=== PATIENT | male | born 1955 | race Two or more races ===

== ENCOUNTER 2025-01-11 12:02 | Inpatient (IN) | payer OTHER ==
[~2025-01-11] VITALS: Ht 170.2 cm; Wt 77.3 kg
--- NOTE | 2025-01-11 12:38 | ECG ---
[facility] Test Date: 2025-01-11 Test Time: 12:37:20 Pat Name: GISELL BHATIA Department: Room: 0288T Gender: M Paper Slitter: KEI : 1955 Requested By: CAROL SUAREZ Order Number: [id number] Reading MD: Raj Chapa Measurements Intervals [place] Rate: 52 P: 44 NE: 183 QRS: 55 QRSD: 103 T: 43 QT: 427 QTc: 397 Interpretive Statements Sinus rhythm Low voltage, precordial leads Electronically Signed On 01-15-2025 15:39:33 PST by Raj Chapa Please click the below link to view image of tracing.
--- NOTE | 2025-01-11 12:51 | ED.PDOC ---
History of Present Illness HPI Comments 69 year old male with PMHx DM, HLD presents to the ED with a chief complaint of dizziness onset 3 days. Patient states he has been experiencing dizziness as well as RT sided weakness, RT sided headache for the past 3 days. Patient states RT side feels weak, looses his balance to the RT. He thought it could be do to high BG, did not check it. Denies blurred vision, numbness/tingling, chest pain, shortness of breath, fever, chills, nausea, vomiting, diarrhea. No other symptoms or modifying factors present at this time. Chief Complaint: Dizziness Time Seen by MD: 12:40 Reviewed Notes: Medications, Allergies Allergies: Coded Allergies: NO KNOWN ALLERGIES (Unverified , 01/11/25) Information Source: Patient Mode of Arrival: Ambulatory Severity: Moderate Timing: Days Duration: Since onset Prehospital treatment: None Past Medical History PAST MEDICAL HISTORY: DM, High Lipids Surgical History: Denies all surgeries Family History Family History: Reviewed,noncontributory to illness, No family hx of Cancer, No family hx of DM, No family hx of Heart glenn, No family hx of HTN, No family hx ofKidney glenn, No family hx of Liver glenn, No family hx of Lung glenn, No family hx of Stroke Social History Smoker: Non-Smoker Alcohol: Denies ETOH Use Drugs: Denies Drug Use Lives In: Home Constitutional: denies: chills, diaphoresis, fatigue, fever, malaise, sweats, weakness, others EENTM: denies: blurred vision, double vision, ear bleeding, ear discharge, ear drainage, ear pain, ear ringing, eye pain, eye redness, hearing loss, mouth pain, mouth swelling, nasal discharge, nose bleeding, nose congestion, nose pain, photophobia, tearing, throat pain, throat swelling, voice changes, others Respiratory: denies: cough, hemoptysis, orthopnea, SOB at rest, shortness of breath, SOB with excertion, stridor, wheezing, others Cardiovascular: denies: chest pain, dizzy spells, diaphoresis, Dyspnea on exertion, edema, irregular heart beat, left arm pain, lightheadedness, palpitations, PND, syncope, others Gastrointestinal: denies: abdomen distended, abdominal pain, blood streaked bowels, constipated, diarrhea, dysphagia, difficulty swallowing, hematemesis, melena, nausea, poor appetite, poor fluid intake, rectal bleeding, rectal pain, vomiting, others Genitourinary: denies: burning, dysuria, flank pain, frequency, hematuria, incontinence, penile discharge, penile sore, pain, testicle pain, testicle swelling, urgency, others Neurological: reports: dizziness, headache, right sided weakness; denies: fainting, left sided numbness, left sided weakness, numbness, paresthesia, pre- existing deficit, right sided numbness, seizure, speech problems, tingling, tremors, weakness, others Musculoskeletal: denies: back pain, gout, joint pain, joint swelling, muscle pain, muscle stiffness, neck pain, others Integumetry: denies: bruises, change in color, change in hair/nails, dryness, laceration, lesions, lumps, rash, wounds, others Allergic/Immunocompromised: denies: Difficulty Healing, Frequent Infections, Hives, Itching, others Hematologic/Lymphatic: denies: anemia, blood clots, easy bleeding, easy bruising, swollen glands, others Endocrine: denies: excessive hunger, excessive sweating, excessive thirst, excessive urination, flushing, intolerance to cold, intolerance to heat, unexplained weight gain, unexplained weight loss, others Psychiatric: denies: anxiety, bipolar disorder, depression, hopeless, panic disorder, schizophrenia, sleepless, suicidal, others All Other Systems: Reviewed and Negative Physical Exam General Appearance: Normal HEENT: Normal ENT Inspection, Pharynx Normal, TMs Normal Neck: Full Range of Motion, Non-Tender, Normal, Normal Inspection Respiratory: Chest Non-Tender, Lungs Clear, No Accessory Muscle Use, No Respiratory Distress, Normal Breath Sounds Cardiovascular: No Edema, No JVD, No Murmur, No Gallop, Normal Peripheral Pulses, Regular Rate/Rhythm Breast Exam: Deferred Gastrointestinal: No Organomegaly, Non Tender, No Pulsatile Mass, Normal Bowel Sounds, Soft Genitalia: Deferred Pelvic: Deferred Rectal: Deferred Extremities: No calf tenderness, Normal capillary refill, Normal inspection, Normal range of motion, Non-tender, No pedal edema Musculoskeletal : Apperance: Normal Neurologic: Alert, 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 Was a procedure done?: No Differential Dx Considerations may include: ACS, CVA, viral syndrome X-Ray, Labs, Meds, VS Vital Signs Date Time Temp Pulse Resp B/P (MAP) Pulse Ox O2 Delivery O2 Flow Rate FiO2 01/11/25 12:37 52 01/11/25 12:03 97.4 57 16 128/77 95 97.4 Lab Test 01/11/25 14:20 01/11/25 12:53 Range/Units Troponin I High Sensitivity 4 4 </=54 ng/L White Blood Count 7.1 4.4-10.8 10^3/uL Red Blood Count 5.27 4.5-5.90 10^6/uL Hemoglobin 15.6 13.5-17.5 g/dL Hematocrit 46.2 41.0-53.0 % Mean Corpuscular Volume 87.6 80.0-100.0 fL Mean Corpuscular Hemoglobin 29.7 28.0-32.0 pg Mean Corpuscular Hemoglobin Concent 33.8 32.0-36.0 g/dL Red Cell Distribution Width 13.7 11.8-14.3 % Platelet Count 199 140-450 10^3/uL Mean Platelet Volume 8.0 6.9-10.8 fL Neutrophils (%) (Auto) 66.7 37.0-80.0 % Lymphocytes (%) (Auto) 25.1 10.0-50.0 % Monocytes (%) (Auto) 6.0 0.0-12.0 % Eosinophils (%) (Auto) 2.0 0.0-7.0 % Basophils (%) (Auto) 0.2 0.0-2.0 % Neutrophils # (Auto) 4.7 1.6-8.6 10 ^3/uL Lymphocytes # (Auto) 1.8 0.4-5.4 10 ^3/uL Monocytes # (Auto) 0.4 0-1.3 10 ^3/uL Eosinophils # (Auto) 0.1 0-0.8 10 ^3/uL Basophils # (Auto) 0 0-0.2 10 ^3/uL Nucleated Red Blood Cells 0.2 % Sodium Level 141 136-145 mmol/L Potassium Level 3.7 3.5-5.1 mmol/L Chloride Level 102 98-107 mmol/L Carbon Dioxide Level 27 20-31 mmol/L Anion Gap 12 5-15 Blood Urea Nitrogen 15 9-23 mg/dL Creatinine 0.82 0.700-1.30 mg/dL Glomerular Filtration Rate Calc 95 >90 mL/min BUN/Creatinine Ratio 18.3 10.0-20.0 Serum Glucose 124 H 74-106 mg/dL Calcium Level 10.2 8.7-10.4 mg/dL Time of 1ST Reevaluation: 13:10 Reevaluation 1ST: Unchanged Patient Education/Counseling: Diagnosis, Treatment, Need For Follow Up Family Education/Counseling: No Family Present SEPSIS Sepsis Screen Date sepsis recognized/suspect: Jan 11, 2025 Time Sepsis recognized/suspect: 1203 Recent Procedure: No On Antibiotic Therapy: No Respiratory Rate >20: No Heart Rate >90: No Temp<36 C (96.8 F) or >38.3 C: No SBP <90 or MAP <65 mmHG: No New Acute Mental Status Change: No Is the patient on CPAP, BIPAP,: No Physician Orders Urinalysis (01/11/25 12:42) Chest Portable (01/11/25 12:42) Head Without Contrast (01/11/25 12:42) Electrocardigram (01/11/25 12:42) Troponin-I Hs (01/11/25 15:42) Electrocardigram (01/11/25 13:42) Electrocardigram (01/11/25 15:42) Vital Signs Date Time Temp Pulse Resp B/P (MAP) Pulse Ox O2 Delivery O2 Flow Rate FiO2 01/11/25 12:37 52 01/11/25 12:03 97.4 57 16 128/77 95 97.4 Laboratory Tests Test 01/11/25 12:53 White Blood Count 7.1 10^3/uL (4.4-10.8) Departure 1 Departure Time of Disposition: 15:44 (Patient with paresthesias and concern for CVA. We will admit the patient for further workup and expert consultation) Impression: Primary Impression: Right-sided muscle weakness Disposition: 09 ADMITTED INPATIENT Admit to: Tele Condition: Guarded Critical Care Note Critical Care Time?: Yes Critical care comment: Concern for CVA Authorized and Performed by: Carol Orlando MD Total critical care time: Approximately 39 minutes Due to a high probability of clinically significant, life threatening deterioration, the patient required my highest level of preparedness to intervene emergently and I personally spent this critical care time directly and personally managing the patient. This critical care time included obtaining a history; examining the patient; pulse oximetry; ordering and review of studies; arranging urgent treatment with development of a management plan; evaluation of patient's response to treatment; frequent reassessment; and, discussions with other providers. This critical care time was performed to assess and manage the high probability of imminent, life-threatening deterioration that could result in multi-organ failure. It was exclusive of separately billable procedures and treating other patients and teaching time. Please see my other sections and the rest of the note for further information on patient assessment and treatment. Stability Stability form required: No Heart Score Heart Score: Heart Score Response (Comments) Value History N/A 0 EKG N/A 0 Age N/A 0 Risk Factors N/A 0 Troponin N/A 0 Total 0 I personally scribed for CAROL ORLANDO MD ([email or web address]) on 01/11/25 at 12:51. Electronically submitted by Svetlana Schmidt ([email or web address]). CAROL ORLANDO MD Jan 11, 2025 12:51
[2025-01-11 13:22] LABS: Hematocrit 46.2 % (41.0-53.0); Hemoglobin 15.6 g/dL (13.5-17.5); Mean Corpuscular Hemoglobin 29.7 pg (28.0-32.0); Mean Corpuscular Volume 87.6 fL (80.0-100.0); Nucleated Red Blood Cells % 0.2 %
--- NOTE | 2025-01-11 13:23 | DVH ---
CHEST RADIOGRAPH Indication: left arm weakness Technique: Single frontal view of the chest was obtained Comparison: None FINDINGS: Lines and Tubes: None Lungs: Prominent bibasilar bronchovascular markings. Findings may be chronic there are no prior studies for comparison Pleura: No effusion. No pneumothorax. Cardiomediastinal contours: Unremarkable Bones: No acute osseous abnormality. IMPRESSION: 1. Prominent bronchovascular markings in the lung bases. There are no prior chest x-rays to help distinguish acute versus chronic pulmonary changes.
--- NOTE | 2025-01-11 13:27 | DVH ---
CT brain without contrast CLINICAL INDICATION: left arm weakness FINDINGS: The study was performed in a multidetector scanner. This study performed taking axial images from the skull base up to the vertex. Both brain and bone windows are photographed. Dose lowering techniques have been used including automated exposure control and adjustment of mA and/or KV according to patient size. Normal and symmetrical shape and density of brain parenchyma above and below the tentorium is seen. Mild bifrontal cortical sulcal prominence. There is no mass, midline shift or hydrocephalus. No intra/extra-axial collections demonstrated. There is no intracranial hemorrhage. The calvarium is intact. IMPRESSION: 1. No acute intracranial pathology Computed Tomographic Radiation Dosimetry Report: Total CTDI vol = 53 mGy Total DLP = 966 mGy-cm All CT scans at this medical facility are performed using dose modulation techniques as appropriate to a performed exam including the following: Automated exposure control was utilized; adjustment of the MA and/or KvP according to patient size; and use of iterative reconstruction technique.
[2025-01-11 13:31] LABS: Chloride 102 mmol/L (98-107); Potassium 3.7 mmol/L (3.5-5.1); Sodium 141 mmol/L (136-145)
[2025-01-11 13:32] LABS: Anion Gap 12 (5-15); Calcium 10.2 mg/dL (8.7-10.4); Carbon Dioxide 27 mmol/L (20-31)
[2025-01-11 13:37] LABS: BUN/Creatinine Ratio 18.3 (10.0-20.0); Blood Urea Nitrogen 15 mg/dL (9-23)
[2025-01-11 13:38] LABS: Glucose 124 mg/dL (74-106)
[2025-01-11] MEDS ORDERED: DOCUSATE SOD 100 MG CAP PO PRN (16:15)
[2025-01-11] MEDS ORDERED: NITROGLYCERIN 0.4 MG SL TAB SL PRN (16:15)
[2025-01-11] MEDS ORDERED: ONDANSETRON HCL 4 MG/2 ML VIAL IV PRN (16:15)
[2025-01-11] MEDS ORDERED: DEXTROSE (50%) 50ML SYRG IV PRN (16:30)
--- NOTE | 2025-01-11 16:36 | DVHHPRES ---
History of Present Illness Resident Creating Document: EVERARDO MARCUS RESIDENT History of Present Illness Mr. Ross, a comparatively healthy 69-year-old male with a history of diabetes and hyperlipidemia presents to the ED with a 3-day history of dizziness, right-sided weakness, and right-sided headache. He reports feeling of f balance and attributes symptoms to possibly elevated blood glucose, though he has not checked his levels. He denies chest pain, shortness of breath, visual changes, numbness, nausea, vomiting, diarrhea, fever, or chills. Symptoms began spontaneously and have persisted without improvement. He arrived ambulatory and has not received any prehospital treatment. PMHx: DM type II, High Lipids Surgical History: Denies all surgeries Family History: Reviewed, noncontributory to illness Social History: Non-Smoker, Denies ETOH Use, Denies Drug Use lives in home. Review of Systems Constitutional: Yes: Weakness; No: Fever, Chills, Sweats, Malaise, Other Eyes: No: Pain, Vision change, Conjunctivae inflammation, Eyelid inflammation, Other, Redness ENT: No: Ear pain, Ear discharge, Nose pain, Nose discharge, Nose congestion, Mouth pain, Mouth swelling, Throat pain, Throat swelling, Other Respiratory: No: Cough, Dry, Shortness of breath, SOB with excertion, Wheezing, Hemoptysis, Pleuritic Pain, Sputum, Wheezing, Other Cardiovascular: No: Chest Pain, Palpitations, Orthopnea, Paroxysmal Noc. Dyspnea, Edema, Lt Headedness, Other Gastrointestinal: No: Nausea, Vomiting, Abdominal Pain, Diarrhea, Constipation, Melena, Hematochezia, Other Genitourinary: No Dysuria, No Frequency, No Incontinence, No Hematuria, No Retention, No Other Musculoskeletal: No: other, neck pain, shoulder pain, arm pain, back pain, hand pain, leg pain, foot pain Skin: No: Rash, Lesions, Jaundice, Bruising, Other Neurological: Weakness, Incoordination, Other (headache and weakness. ); No: Numbness, Change in speech, Confusion, Seizures Allergies: Coded Allergies: NO KNOWN ALLERGIES (Unverified , 01/11/25) Exam Vital Signs Vital Signs Date Time Temp Pulse Resp B/P (MAP) Pulse Ox O2 Delivery O2 Flow Rate FiO2 01/11/25 12:37 52 01/11/25 12:03 97.4 16 128/77 95 97.4 General Appearance: Alert, Oriented X3, Cooperative HEENT: Atraumatic, PERRLA, EOMI, Mucous membr. moist/pink Respiratory: Clear to auscultation, Normal air movement Cardiovascular: Regular rate, Normal S1, Normal S2, No murmurs, Gallops, Rubs Abdominal: Normal bowel sounds, Soft, No tenderness, No hepatospenomegaly, No masses Extremities: No clubbing, No cyanosis, Normal pulses, No tenderness/swelling Skin: No rashes, No breakdown, No significant lesion Neuro: Normal gait, Normal speech, Normal tone, Sensation intact, Cranial nerves 3-12 NL, Reflexes 2+, Other (Gross strength left lower leg vs right lower leg and left upper limb vs right lower limb indifferentiable) Psych/Mental Status: Mental status NL, Mood NL Labs/Xrays Labs Test 01/11/25 14:20 01/11/25 12:53 Range/Units Troponin I High Sensitivity 4 </=54 ng/L White Blood Count 7.1 4.4-10.8 10^3/uL Red Blood Count 5.27 4.5-5.90 10^6/uL Hemoglobin 15.6 13.5-17.5 g/dL Hematocrit 46.2 41.0-53.0 % Mean Corpuscular Volume 87.6 80.0-100.0 fL Mean Corpuscular Hemoglobin 29.7 28.0-32.0 pg Mean Corpuscular Hemoglobin Concent 33.8 32.0-36.0 g/dL Red Cell Distribution Width 13.7 11.8-14.3 % Platelet Count 199 140-450 10^3/uL Mean Platelet Volume 8.0 6.9-10.8 fL Neutrophils (%) (Auto) 66.7 37.0-80.0 % Lymphocytes (%) (Auto) 25.1 10.0-50.0 % Monocytes (%) (Auto) 6.0 0.0-12.0 % Eosinophils (%) (Auto) 2.0 0.0-7.0 % Basophils (%) (Auto) 0.2 0.0-2.0 % Neutrophils # (Auto) 4.7 1.6-8.6 10 ^3/uL Lymphocytes # (Auto) 1.8 0.4-5.4 10 ^3/uL Monocytes # (Auto) 0.4 0-1.3 10 ^3/uL Eosinophils # (Auto) 0.1 0-0.8 10 ^3/uL Basophils # (Auto) 0 0-0.2 10 ^3/uL Nucleated Red Blood Cells 0.2 % Sodium Level 141 136-145 mmol/L Potassium Level 3.7 3.5-5.1 mmol/L Chloride Level 102 98-107 mmol/L Carbon Dioxide Level 27 20-31 mmol/L Anion Gap 12 5-15 Blood Urea Nitrogen 15 9-23 mg/dL Creatinine 0.82 0.700-1.30 mg/dL Glomerular Filtration Rate Calc 95 >90 mL/min BUN/Creatinine Ratio 18.3 10.0-20.0 Serum Glucose 124 H 74-106 mg/dL Calcium Level 10.2 8.7-10.4 mg/dL SEPSIS Sepsis Screen Date sepsis recognized/suspect: Jan 11, 2025 Time Sepsis recognized/suspect: 1203 Recent Procedure: No On Antibiotic Therapy: No Respiratory Rate >20: No Heart Rate >90: No Temp<36 C (96.8 F) or >38.3 C: No SBP <90 or MAP <65 mmHG: No New Acute Mental Status Change: No Is the patient on CPAP, BIPAP,: No Physician Orders Urinalysis (01/11/25 12:42) Chest Portable (01/11/25 12:42) Head Without Contrast (01/11/25 12:42) Electrocardigram (01/11/25 12:42) Troponin-I Hs (01/11/25 15:42) Electrocardigram (01/11/25 13:42) Electrocardigram (01/11/25 15:42) Admit (01/11/25 16:06) Allergies (01/11/25 16:06) Code Status (01/11/25 16:06) Sodium Chloride 0.9% (01/11/25 16:15) Ondansetron Hcl (Zofran) (01/11/25 16:15) Docusate Sodium Capsule (Colace Capsule) (01/11/25 16:15) Fall Risk Precautions In Place QSHIFT (01/11/25 16:06) Complete Blood Count (01/12/25 04:00) Comprehensive Metabolic Panel (01/12/25 04:00) Pt Request For Service (01/11/25 16:06) Echo 2d Mode Cardiac Dop (01/11/25 16:06) Carotid Duplx W Color Dop (01/11/25 16:06) Condition: Critical (01/11/25 16:06) Bedrest With Bathroom Privileg (01/11/25 16:06) Sequential Compression Device (01/11/25 ) Nitroglycerin Sublingual (Ntrostat Subli (01/11/25 16:15) Morphine Sulfate Injection (01/11/25 16:15) Oxygen By Nasal Cannula (01/11/25 16:06) Stat Ekg For Chest Pain (01/11/25 16:06) Notify Of Changes From Base (01/11/25 16:06) Drying Oven Tender For 24 Hours (01/11/25 16:06) Emergency Dysrhythmia Protocol (01/11/25 16:06) Rhythm Strips Once Every Shift (01/11/25 16:06) Covid19 Antigen Linda (01/11/25 ) Rapid Influenza A&B (01/11/25 16:16) Hepatic Panel (01/11/25 16:16) Orthostatic Vital Signs (01/11/25 16:16) Drug Screen (01/11/25 16:17) Urinalysis (01/11/25 16:17) Thyroid Stimulating Hormone (01/11/25 16:17) Aspirin Tablet (01/11/25 16:30) Atorvastatin (Lipitor) (01/11/25 22:00) Cardiac Diet-2gna,Lofat,Lochol (01/11/25 Dinner) Glucose Blood (Accu-Chek Comfort Curve T (01/11/25 17:00) Insulin R (Human) (Insulin R) (01/11/25 17:00) Dextrose 50% Syringe (01/11/25 16:30) B-Type Natriuretic Peptide (01/11/25 16:20) Famotidine Tablet (Pepcid Tablet) (01/11/25 22:00) Vital Signs Date Time Temp Pulse Resp B/P (MAP) Pulse Ox O2 Delivery O2 Flow Rate FiO2 01/11/25 12:37 52 01/11/25 12:03 97.4 57 16 128/77 95 97.4 Laboratory Tests Test 01/11/25 12:53 White Blood Count 7.1 10^3/uL (4.4-10.8) Assessment/Plan Assessment/Plan # Stroke vs TIA: dizziness, with Rt sided weakens with headache: CT NC Head -ve, PT if persistent weakness neurology eval and MRI head. Will start on aspirin and atorvastatin for now. Neurology consult. # sinus bradycardia heart rate in 50s, symptomatic with dizziness/ presyncope episodes: Low voltage, precordial leads, Telemetry no mike chen, atropine as needed, ruled out beta chen toxicity, if heart rate goes further below we will need temporary pacing with IV dopamine, isolated left great, evaluation by Cardiology for possible sick sinus syndrome/ need of Permanent pacemaker # Recurrent Dizziness: orthostatic vitals, telemetry TSH, rule out B12, folate and PT eval for fall precautions. # Diabetes type II: on oral hypoglycemics: previously on faxiga , pioglitazone not on metformin 1000 bid, check for lactate. HBA1C target 7-8 # Dyslipidemia: on atorvastrin 20 mg daily. will continue at 40 mg daily PUD prophylaxis: famotidine DVT prophylaxis: SCD/brisk movement. Barriers to discharge: Medical diagnosis and management in progress. Patient lives with family. Independent for ADL prior to weakness. PT and SW consult as needed. PCP: MELVA Buitrago. Specialist Relevant To Admission: Neurology for TIA vs Stroke. Cardiology, if telemetry remarkable for rhythm disorders Case discussed with Dr. Dale. Code Status: Full Code. Discussion needed total 29 minutes bedside. Plan discussed with: Patient My Orders Orders - EVERARDO MARCUS RESIDENT Procedure Category Date Status Time Admit ADMIT 01/11/25 Transmitted 16:06 Allergies [facility] 01/11/25 In Process 16:06 Code Status CODE 01/11/25 Transmitted 16:06 Sodium Chloride 0.9% PHA 01/11/25 Logged 16:15 Ondansetron Hcl PHA 01/11/25 Logged (Zofran) 16:15 Docusate Sodium PHA 01/11/25 Logged Capsule (Colace 16:15 Fall Risk Precautions ASIA 01/11/[address] 16:06 Complete Blood Count LAB 01/12/25 Verified 04:00 Comprehensive LAB 01/12/25 Verified Metabolic Panel 04:00 Pt Request For Service PT 01/11/25 Logged 16:06 Echo 2d Mode Cardiac US 01/11/25 Logged DOP 16:06 Carotid Duplx W Color US 01/11/25 Logged DOP 16:06 Condition: Critical [facility] 01/11/25 In Process 16:06 Bedrest With Bathroom [facility] 01/11/25 In Process Privileg 16:06 Sequential [facility] 01/11/25 In Process Compression Device Nitroglycerin [facility] 01/11/25 Logged Sublingual (Ntrostat 16:15 Morphine Sulfate [facility] 01/11/25 Logged Injection 16:15 Oxygen By Nasal RT 01/11/25 Transmitted Cannula 16:06 Stat Ekg For Chest [facility] 01/11/25 In Process Pain 16:06 Notify Of Changes [facility] 01/11/25 In Process From Base 16:06 Drying Oven Tender For [facility] 01/11/25 In Process 24 Hours 16:06 Emergency Dysrhythmia [facility] 01/11/25 In Process Protocol 16:06 Rhythm Strips Once [facility] 01/11/25 In Process Every Shift 16:06 Covid19 Antigen Linda LAB 01/11/25 Logged Rapid Influenza A&B LAB 01/11/25 Logged 16:16 Hepatic Panel LAB 01/11/25 Logged 16:16 Orthostatic Vital ORDERS 01/11/25 Transmitted Signs 16:16 Drug Screen LAB 01/11/25 Logged 16:17 Urinalysis LAB 01/11/25 Logged 16:17 Thyroid Stimulating LAB 01/11/25 Logged Hormone 16:17 Aspirin Tablet [facility] 01/11/25 Logged 16:30 Atorvastatin (Lipitor) [facility] 01/11/25 Logged 22:00 Cardiac DIET 01/11/25 Transmitted Diet-2gna,Lofat,Lochol Dinner Glucose Blood PHA 01/11/25 Logged (Accu-Chek Comfort 17:00 Insulin R (Human) [facility] 01/11/25 Logged (Insulin R) 17:00 Dextrose 50% Syringe [facility] 01/11/25 Logged 16:30 B-Type Natriuretic LAB 01/11/25 In Process Peptide 16:20 Famotidine Tablet [facility] 01/11/25 Logged (Pepcid Tablet) 22:00 Date of Service: Jan 11, 2025 Billing Provider: BRITTANY DALE MD Common Visit Codes: 30452-VUXCOWO INP/OBS CARE (HIGH) Secondary Visit Codes: 32899-[id number] CARE PLAN 30 MINUTES EVERARDO MARCUS 10, 2025 16:36
[2025-01-11] MEDS: SODIUM CHLORIDE 0.9% 1,000 ML IV SCH (16:48)
[2025-01-11] MEDS ORDERED: MORPHINE SULFATE 4 MG/ML SYR/VIAL IV PRN (17:00)
[2025-01-11 17:33] LABS: Alanine Aminotransferase 13.0 U/L (7-40); Albumin 4.8 g/dL (3.2-4.8); Alkaline Phosphatase 109.0 U/L (46-116); Bilirubin, Direct 0.1 mg/dL (<0.3); Bilirubin, Total 0.6 mg/dL (0.2-1.0); Total Protein 7.5 g/dL (5.7-8.2)
[2025-01-11] MEDS: ACCU-CHEK COMFORT CURVE STRIP VI SCH (17:33)
[2025-01-11] MEDS: InsuLIN REG 1unit/0.01ml Soln (100units/ml) SC SCH (17:56)
--- NOTE | 2025-01-11 17:56 | DVH ---
Carotid Duplex Clinical History: r/o clinically significant carotid stenosis. Comparison: None Technique: Duplex Doppler evaluation of the extracranial carotid and vertebral arteries including color Doppler and spectral/pulsed waveform analysis was performed. Findings: RIGHT SIDE: The peak systolic velocities are 89 cm/s in the CCA, 74 cm/s in the ICA. The ICA/CCA ratio is 0.8. The external carotid artery is patent with peak systolic velocity of 98 cm/s proximally. The subclavian artery is patent with peak systolic velocity of n/a cm/s. There is appropriate antegrade flow in the right vertebral artery. LEFT SIDE: The peak systolic velocities are 81 cm/s in the CCA, 100 cm/s in the ICA. The ICA/CCA ratio is 1.2. The external carotid artery is patent with peak systolic velocity of 139 cm/s proximally. The subclavian artery is patent with peak systolic velocity of n/a cm/s. There is appropriate antegrade flow in the left vertebral artery. IMPRESSION: No hemodynamically significant stenosis noted in the right carotid system. No hemodynamically significant stenosis noted in the left carotid system. Reference: Radiology 2003; 229:340-346 Normal ICA PSV is <125 cm/sec and no plaque or intimal thickening is visible sonographically additional criteria include ICA/CCA PSV ratio <2.0 and ICA EDV <40 cm/sec <50% ICA stenosis ICA PSV is <125 cm/sec and plaque or intimal thickening is visible sonographically additional criteria include ICA/CCA PSV ratio <2.0 and ICA EDV <40 cm/sec 50-69% ICA stenosis ICA PSV is 125-230 cm/sec and plaque is visible sonographically additional criteria include ICA/CCA PSV ratio of 2.0-4.0 and ICA EDV of 40-100 cm/sec 70% ICA stenosis but less than near occlusion ICA PSV is >230 cm/sec and visible plaque and luminal narrowing are seen at richard-scale and color Doppler ultrasound (the higher the Doppler parameters lie above the threshold of 230 cm/sec, the greater the likelihood of severe disease) additional criteria include ICA/CCA PSV ratio >4 and ICA EDV >100 cm/sec
[2025-01-11 18:31] LABS: COVID19 ANTIGEN SOFIA FIA NEGATIVE (NEGATIVE)
[2025-01-11 20:08] LABS: Urine Protein, UAD Negative (Negative)
[2025-01-11 20:24] LABS: Amphetamine Screen, Urine Neg (NEGATIVE); Barbiturate Scree,Urine Neg (NEGATIVE); Benzodiazephine Screen, Urine Neg (NEGATIVE); Cannabinoid Screen, Urine Neg (NEGATIVE); Cocaine Screen, Urine Neg (NEGATIVE); Opiate Scree,Urine Neg (NEGATIVE); Phencyclidine Screen, Urine Neg (NEGATIVE)
--- NOTE | 2025-01-11 21:01 | DVHINCON2 ---
Date of service: Jan 11, [address] Cummins Reason for Consultation TIA versus stroke History of Present Illness Mr. Ross is a 69 years old right-handed gentleman with a history of diabetes, dyslipidemia, he came to the [facility] on 01/11/2025 with a chief complaint of dizziness, at this time, he is alert and fully oriented, he provided the following history Since 01/08/2025, he everyday he has episodic event with intense dizziness/spinning sensation lasting for 1-2 minutes, along with a falling sensation, which typically triggered by sleeping on the right side, getting up or lying down to the bed, reason or bending the head, there is no associated focal weakness numbness He denies recent fall/head injury He denies a history of stroke UDS, 01/11/2025: Negative Urinalysis, 01/11/2025: Glucose 4+ CBC, 01/11/2025: Unremarkable BMP 01/11/2025: Unremarkable LFT 01/11/2025: Unremarkable TSH, 01/11/2025: 1.01 Carotid Doppler, 01/11/2025: No hemodynamically significant stenosis noted in the right carotid system. No hemodynamically significant stenosis noted in the left carotid system CT head, 01/11/2025: No acute intracranial pathology Past Medical History Diabetes, dyslipidemia Past Surgical History Right ankle fracture repair Family History Heart disease Social History He denies a history of tobacco smoke, drug and alcohol abuse Allergies: Coded Allergies: NO KNOWN ALLERGIES (Unverified , 01/11/25) Current Medications Current Medications Medications (Trade) Dose Ordered Sig/Yon Route PRN Reason Start Time Stop Time Status Last Admin Sodium Chloride 1,000 ml @ 120 mls/hr Q8H20M IV 01/11/25 16:15 Ondansetron HCl (Zofran) 4 mg Q4HP PRN IV NAUSEA / VOMITING 01/11/25 16:15 Docusate Sodium (Colace Capsule) 100 mg BIDPRN PRN PO FOR CONSTIPATION 01/11/25 16:15 Nitroglycerin (Ntrostat Sublingual) 0.4 mg Q5MINP PRN SL FOR CHEST PAIN 01/11/25 16:15 Morphine Sulfate 2 mg Q30M PRN IV FOR CHEST PAIN 01/11/25 17:00 Aspirin 81 mg DAILY PO 01/11/25 16:30 01/11/25 17:05 Atorvastatin Calcium (Lipitor) 40 mg HS PO 01/11/25 22:00 Diagnostic Test (Pha) (Accu-Chek Comfort Curve T) 1 strip ACHS 01/11/25 17:00 01/11/25 17:33 Insulin Human Regular (InsuLIN R) ACHS SC 01/11/25 17:00 01/11/25 17:56 Dextrose 50 ml UD PRN IV Blood Sugar LESS THAN 60 01/11/25 16:30 Famotidine (Pepcid Tablet) 20 mg BID PO 01/11/25 22:00 Review of Systems As above, the other systems are negative Vital Signs Vital Signs Date Time Temp Pulse Resp B/P (MAP) Pulse Ox O2 Delivery O2 Flow Rate FiO2 01/11/25 16:42 58 16 97 Room Air 01/11/25 16:31 97.6 124/70 (88) 97.6 Physical Exam GENERAL EXAM: General: the patient is well developed and nourished. No acute distress. HEENT: Normocephalic, neck is supple, no carotid bruits. No mass. RESPIRATORY: Normal respiratory effort with symmetrical lung expansion. Lungs clear to auscultation. CARDIOVASCULAR: Regular rate and rhythm with no murmurs. S1, S2. ABDOMEN: Soft, nontender, normal bowel sound NEUROLOGICAL: MENTAL STATUS: Awake and alert. Oriented to person, place, time and general c ircumstances. Able to give personal history SPEECH, LANGUAGE, HIGHER CORTICAL FUNCTION: no aphasia or dysathria. CRANIAL NERVES: #2: Intact visual cosme to confrontation. The optic discs were sharp. #3,4,6: Pupils are equal, round and reactive. EOMs full and conjugate. No nystagmus. #5: Facial sensation intact in all three divisions bilaterally. Mandibular strength intact. #7: Facial muscles symmetrical and strength intact. #8: Hearing grossly normal to voice. #9,10: Uvula and soft palate rise in the midline. Swallow and voice are normal. #11: Trapezius and sternomastoid strength intact bilaterally. #12: Tongue midline. No fasciculations or atrophy. SENSATION: Sensation to touch and pinprick is normal. MOTOR: Normal tone in the upper and lower extremity. Normal muscle bulk. No fasciculations. No abnormal movements or posturing. Muscle strength of the major groups in the upper extremities is 5/5. Muscle strength of the major groups in the lower extremities is 5/5. REFLEXES: Deep tendon reflexes normal and symmetrical. No pathological reflexes. CEREBELLAR/COORDINATION: Finger to nose and heel to duran are normal bilaterally. GAIT/STATION: Within normal limits. Labs/Diagnostic Data Labs Test 01/11/25 19:59 01/11/25 19:43 01/11/25 17:10 01/11/25 16:20 Range/Units Lactic Acid Level 1.4 0.4-2.0 mmol/L Urine Color Light-yellow Yellow Urine Clarity Clear Clear Urine pH 5.0 5.0-9.0 Urine Specific Albers 1.031 1.001-1.035 Urine Protein Negative Negative Urine Ketones Negative Negative Urine Blood Negative Negative /uL Urine Nitrite Negative Negative Urine Bilirubin Negative Negative Urine Urobilinogen Normal Negative mg/dL Urine Leukocyte Esterase Negative Negative /uL Urine RBC <1 0 - 3 /hpf Urine Microscopic WBC 1 0-3 /HPF Urine Squamous Epithelial Cells None seen <5 /hpf Urine Bacteria None seen None Seen /hpf Urine Glucose 4+ H Normal mg/dL Urine Opiates Screen Neg NEGATIVE Urine Fentanyl Screen Neg NEGATIVE Urine Barbiturates Screen Neg NEGATIVE Urine Phencyclidine Screen Neg NEGATIVE Urine Amphetamines Screen Neg NEGATIVE Urine Benzodiazepines Screen Neg NEGATIVE Urine Cocaine Screen Neg NEGATIVE Urine Cannabinoids Screen Neg NEGATIVE Influenza Type A Antigen Negative Negative Influenza Type B Antigen Negative Negative SARS-CoV-2 Antigen (Rapid) Negative NEGATIVE Total Bilirubin 0.6 0.2-1.0 mg/dL Direct Bilirubin 0.1 <0.3 mg/dL Aspartate Amino Transferase (AST) 18 13-40 U/L Alanine Aminotransferase (ALT) 13 7-40 U/L Alkaline Phosphatase 109 46-116 U/L Troponin I High Sensitivity 4 </=54 ng/L Total Protein 7.5 5.7-8.2 g/dL Albumin 4.8 3.2-4.8 g/dL Thyroid Stimulating Hormone (TSH) 1.01 0.55-4.78 uIU/mL Test 01/11/25 12:53 Range/Units White Blood Count 7.1 4.4-10.8 10^3/uL Red Blood Count 5.27 4.5-5.90 10^6/uL Hemoglobin 15.6 13.5-17.5 g/dL Hematocrit 46.2 41.0-53.0 % Mean Corpuscular Volume 87.6 80.0-100.0 fL Mean Corpuscular Hemoglobin 29.7 28.0-32.0 pg Mean Corpuscular Hemoglobin Concent 33.8 32.0-36.0 g/dL Red Cell Distribution Width 13.7 11.8-14.3 % Platelet Count 199 140-450 10^3/uL Mean Platelet Volume 8.0 6.9-10.8 fL Neutrophils (%) (Auto) 66.7 37.0-80.0 % Lymphocytes (%) (Auto) 25.1 10.0-50.0 % Monocytes (%) (Auto) 6.0 0.0-12.0 % Eosinophils (%) (Auto) 2.0 0.0-7.0 % Basophils (%) (Auto) 0.2 0.0-2.0 % Neutrophils # (Auto) 4.7 1.6-8.6 10 ^3/uL Lymphocytes # (Auto) 1.8 0.4-5.4 10 ^3/uL Monocytes # (Auto) 0.4 0-1.3 10 ^3/uL Eosinophils # (Auto) 0.1 0-0.8 10 ^3/uL Basophils # (Auto) 0 0-0.2 10 ^3/uL Nucleated Red Blood Cells 0.2 % Sodium Level 141 136-145 mmol/L Potassium Level 3.7 3.5-5.1 mmol/L Chloride Level 102 98-107 mmol/L Carbon Dioxide Level 27 20-31 mmol/L Anion Gap 12 5-15 Blood Urea Nitrogen 15 9-23 mg/dL Creatinine 0.82 0.700-1.30 mg/dL Glomerular Filtration Rate Calc 95 >90 mL/min BUN/Creatinine Ratio 18.3 10.0-20.0 Serum Glucose 124 H 74-106 mg/dL Calcium Level 10.2 8.7-10.4 mg/dL B-Type Natriuretic Peptide 33.18 0-100 pg/mL Assessment Vertigo Likely the patient has benign paroxysmal positional vertigo TIA/stroke, less likely Intracranial, especially posterior pathology, less likely Plan/Recommendation Monitoring Supportive treatment MR brain scan No specific treatment at this time More recommendation per clinical course I have spent time discussing with him about impression and recommendation Internet reading material in Greek obtained for him to read This medical document was created using an electronic medical record system with [employer] dictation system. Although this document has been carefully reviewed, there may still be some phonetic and typographical errors. These areas are purely typographical due to imperfections of the software programs, and do not reflect any compromise in the patient's medical care. Plan discussed with: Patient, Other YULIYA WOODWARD MD Jan 11, 2025 21:01
[2025-01-11] MEDS ORDERED: LORazepam 2MG/ML-1ML VIAL IV PRN (22:00)
[2025-01-12] VITALS (8 sets, daily range): BP systolic 101–131; BP diastolic 53–79; PULSE 51–60; RESP 17–18; TEMP 97.5–98; O2SAT 95–98
[2025-01-12] MEDS: ATORVASTATIN 20 MG TAB PO SCH (01:30)
[2025-01-12] MEDS: FAMOTIDINE 20 MG TAB PO SCH (01:30)
[2025-01-12 05:20] LABS: Hematocrit 43.6 % (41.0-53.0); Hemoglobin 14.7 g/dL (13.5-17.5); Mean Corpuscular Hemoglobin 29.8 pg (28.0-32.0); Mean Corpuscular Volume 88.2 fL (80.0-100.0); Nucleated Red Blood Cells % 0.1 %
[2025-01-12 05:38] LABS: Alanine Aminotransferase 12 U/L (7-40); Albumin 4.4 g/dL (3.2-4.8); Alkaline Phosphatase 90 U/L (46-116); Anion Gap 9 (5-15); BUN/Creatinine Ratio 20.0 (10.0-20.0); Blood Urea Nitrogen 14 mg/dL (9-23); Calcium 9.5 mg/dL (8.7-10.4); Carbon Dioxide 28 mmol/L (20-31); Chloride 106 mmol/L (98-107); Glucose 104 mg/dL (74-106); Potassium 4.2 mmol/L (3.5-5.1); Sodium 143 mmol/L (136-145); Total Protein 7.0 g/dL (5.7-8.2)
[2025-01-12 05:39] LABS: Bilirubin, Total 0.8 mg/dL (0.2-1.0)
--- NOTE | 2025-01-12 13:28 | DVH ---
EXAMINATION: MRI BRAIN HEAD WO CONTRAST INDICATION: TIA, vertigo COMPARISON: CT HEAD WITHOUT CONTRAST on DOS: 01/11/25 TECHNIQUE: Multiplanar, multisequence magnetic resonance imaging of the brain was performed without the use of intravenous contrast. FINDINGS: No evidence of acute infarct. No intracranial hemorrhage. No mass effect. Generalized cortical volume loss. The ventricles and sulci are normal in size for age. Clear basal cisterns. Flow voids in the major intracranial vessels are maintained. No abnormality of the orbits. Paranasal sinuses and mastoid air cells are clear. Grossly unremarkable appearance of the extracranial soft tissues. There is posterior disc osteophyte complex at C3-C4 with mass effects in the cervical spinal canal IMPRESSION: 1. No acute infarct, intracranial hemorrhage, mass effect, or hydrocephalus. 2. Generalized cortical volume loss. 3. 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 MRI of the cervical spine may be obtained for further evaluation.
--- NOTE | 2025-01-13 10:56 | DVHSR ---
APPROVED REPORT EXAM: Two-dimensional and M-mode echocardiogram with Doppler and color Doppler. Blood Pressure: 131/79 mmHg INDICATION rule out structural heart disease RISK FACTORS Height: 5'7, Weight: 170 DIMENSIONS LVDd 4.4 (3.8-5.7cm) LA (2D) 3.9 (1.9-4.0cm) Aortic Root 2.8 (2.0-3.7cm) LVDs 2.9 (2.5-4.0cm) LA (MM) (1.9-4.0cm) Aortic Cusp Exc 1.5 (1.5-2.0cm) EF (%) 64.0 (55-70%) Rt. Atrium 4.1 (1.9-4.0cm) Asc. Aorta 3.0 cm IVSd 1.3 (0.7-1.1cm) RV (D) (1.8-2.4cm) PWd 1.0 (0.7-1.1cm) Mitral Valve Mitral Mitral Stenosis E wave 0.57m/s MV Mean GR. mmHg A wave 0.78m/s MV Peak GR. mmHg E/A ratio 0.7 2D MVA cm2 DECEL Time 189ms PRESS 1/2 Time ms Aortic Valve Aortic Valve Aortic Stenosis V1 0.81m/s AO Mean GR. mmHg LVOT Diameter 1.8 (1.8-2.4cm) Doppler JW 0.00cm2 AI P 1/2 Time 803.33ms Pulmonic Valve V2 1.30m/s Tricuspid Valve TR Velocity 2.10m/s RVSP 18mmHg Other Information Technically limited study due to body habitus. Conclusion LV EF IS 70% AND IS NORMAL NORMAL VALVES NORMAL RV FUNCTION NO EFFUSION
== END 2025-01-12 15:24 | disposition home or self-care (01) | DRG 149 ==
LOC: ER 12:02 → OVERFLOW 16:06 → TELE-WESTW 01-12 01:56
PROVIDERS: ADMIT Hospitalist; ATTEND Hospitalist
DX: H81.13 Benign paroxysmal vertigo, bilateral (principal); E11.9 Type 2 diabetes mellitus without complications; Z20.822 Contact with and (suspected) exposure to COVID-19; E78.5 Hyperlipidemia, unspecified; Z79.899 Other long term (current) drug therapy
CPT/HCPCS: 36415; 70450; 70551; 71045; 80048; 80053; 80076; 80307; 81001; 82962; 83605; 83880; 84443; 84484; 85025; 87426; 87804; 93005; 93306; 93886; 97163; 99291; G0378; J1815